=== PATIENT | female | born 1995 | race Hispanic/Latino ===

== ENCOUNTER 2024-04-04 09:24 | Day surgery (SDC) | payer OTHER ==
[2024-04-04] MEDS ORDERED: Acetaminophen 500 MG TAB ONE (09:30)
[2024-04-04] MEDS: Acetaminophen 500 MG TAB PO SCH (09:31)
[2024-04-04 10:10] VITALS: TEMP 98.2
[2024-04-04] MEDS: Iron Sucrose Complex 500 MG in Sodium Chloride 0.9% 250 ML 250 ML IVPB SCH (10:13)
[2024-04-04 14:41] VITALS: BP 106/53
== END 2024-04-04 15:14 | disposition home or self-care (01) ==
LOC: ONC/OP 09:24
PROVIDERS: ATTEND Family Medicine
DX: O99.013 Anemia complicating pregnancy, third trimester (principal); O99.343 Other mental disorders complicating pregnancy, third trimester; F41.9 Anxiety disorder, unspecified; F32.A Depression, unspecified; Z67.91 Unspecified blood type, Rh negative; Z3A.29 29 weeks gestation of pregnancy
CPT/HCPCS: 96365; 96366; J1756; J7050